=== PATIENT | female | born 1990 | race Two or more races ===

== ENCOUNTER 2018-10-10 18:30 | Inpatient (IN) | payer OTHER ==
[~2018-10-10] VITALS: Ht 157.5 cm; Wt 64.0 kg
[2018-10-10] MEDS ORDERED: IRON18 MG PO (18:53)
[2018-10-10] MEDS ORDERED: PRENATABS RX T1 EACH PO (18:53)
== END 2018-10-12 09:04 | disposition home or self-care (01) | DRG 833 ==
LOC: OB/GYN 18:30 → LDR 18:30 → OB/GYN 10-11 08:06
PROC: 4A1HXCZ Monitoring of Products of Conception, Cardiac Rate, External Approach (ICD-10-PCS; principal; 2018-10-10)
DX: O47.03 False labor before 37 completed weeks of gestation, third trimester (principal); Z34.83 Encounter for supervision of other normal pregnancy, third trimester

== ENCOUNTER → 2018-10-20 | Outpatient (CLI) | payer OTHER ==
[~2018-10-20] MED LIST: IRON18 MG PO; PRENATABS RX T1 EACH PO
== END | disposition home or self-care (01) ==
LOC: NST 16:27
DX: Z34.83 Encounter for supervision of other normal pregnancy, third trimester (principal)

== ENCOUNTER 2018-11-13 12:32 | Inpatient (IN) | payer OTHER ==
[~2018-11-13] VITALS: Ht 157.5 cm; Wt 67.1 kg
== END 2018-11-28 13:04 | DRG 788 ==
LOC: LDR 11-25 06:58 → OB/GYN 11-25 06:58
PROVIDERS: ADMIT Obstetrics & Gynecology
PROC: 4A1HXCZ Monitoring of Products of Conception, Cardiac Rate, External Approach (ICD-10-PCS; 2018-11-25)
PROC: 10D00Z1 Extraction of Products of Conception, Low, Open Approach (ICD-10-PCS; principal; 2018-11-25 14:00)
DX: O34.211 Maternal care for low transverse scar from previous cesarean delivery (principal); O75.82 Onset (spontaneous) of labor after 37 completed weeks of gestation but before 39 completed weeks gestation, with delivery by (planned) cesarean section; Z3A.37 37 weeks gestation of pregnancy; Z37.0 Single live birth

== ENCOUNTER 2018-11-25 01:40 | Outpatient (CLI) | payer OTHER | END 2018-11-25 08:04 | disposition still patient (30) | LOC: OBS/DEL 01:40 | DX: O47.1 False labor at or after 37 completed weeks of gestation (principal); Z34.83 Encounter for supervision of other normal pregnancy, third trimester ==

== ENCOUNTER 2020-09-27 08:07 | Emergency (ER) | payer OTHER ==
[~2020-09-27] VITALS: Ht 157.5 cm; Wt 59.0 kg
== END 2020-09-27 10:50 | disposition home or self-care (01) ==
LOC: ER 08:07
DX: B34.9 Viral infection, unspecified (principal); Z20.828 Contact with and (suspected) exposure to other viral communicable diseases

== ENCOUNTER 2021-06-05 15:13 | Emergency (ER) | payer OTHER ==
[~2021-06-05] VITALS: Ht 157.5 cm; Wt 56.7 kg
== END 2021-06-05 19:55 | disposition home or self-care (01) ==
LOC: ER 15:13
DX: K52.9 Noninfective gastroenteritis and colitis, unspecified (principal); R11.11 Vomiting without nausea